=== PATIENT | female | born 1990 | race Caucasian/White ===

== ENCOUNTER 2018-02-07 08:00 | Outpatient (RCR) | payer OTHER ==
[2018-01-31 08:48] VITALS: BP 144/92
[~2018-02-07 08:00] MED LIST: ACET500T68 PO; FOLI-68 PO; LOR5/325 PO; NORG1TAB20 PO; PYRI100T57 PO; VITA-324 PO; WARF10TA28 PO
[2018-02-07 08:15] VITALS: BP 126/83
--- NOTE | 2018-02-07 21:34 | ONCOLOGY FOLLOW UP NOTE ---
EVENT DATE: February 07, 2018 DIAGNOSES 1. Superior sagittal and transverse sinus thrombosis. 2. History of migraine headache. CHIEF COMPLAINT Patient is here today for followup of her cerebrovenous sinus thrombosis with hypercoagulable state. HEMATOLOGY HISTORY The patient is a 27-year-old female who was diagnosed with cerebrovenous sinus thrombosis on June 13, 2015, after being on oral contraceptive pills for about two months. The patient was admitted to the [facility] for about 10 to 11 days. She received heparin, but without improvement of her thrombosis, so the patient received tPA via shunt, and she is currently maintained on Coumadin. The patient has been seen by a neurosurgeon at the [facility], but no genetic testing was done or clotting disorder testing was done there. She still has some diplopia because she was diagnosed with cranial nerve palsy with mild papilledema. 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 HISTORY OF PRESENT ILLNESS Patient is here today for followup of her cerebrovenous sinus thrombosis and hypercoagulable state. She is doing very well currently. She is not on any anticoagulation currently. She is totally asymptomatic except for occasional headache. CURRENT MEDICATIONS 1. Hydrocodone/acetaminophen 5/325 mg one tablet q.4-6 hours p.r.n. for pain. 2. Coumadin 10 mg for six days and 12.5 mg for one day. 3. Folic acid 1 mg daily. 4. Vitamin B complex one tablet daily. ALLERGIES No known drug allergies. PAST MEDICAL HISTORY 1. Cerebral sinus thrombosis of the transverse and superior sagittal sinuses diagnosed June 13, 2015. 2. Migraine headache. PAST SURGICAL HISTORY Microcatheters releasing tPA into the brain clot. FAMILY HISTORY Father was type 1 diabetes and from complications of diabetes. Family history was negative for cancer or blood clotting disorders. SOCIAL HISTORY The patient is . 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 She occasionally drinks, but denies any abuse of alcohol, tobacco, or drugs. REVIEW OF SYSTEMS CONSTITUTIONAL: No appetite or weight change. No fever, chills, or sweating. No recent infection. HEENT: Ears: No tinnitus or hearing problem. Nose: No nasal discharge or epistaxis. Throat: No sore throat or mouth ulcers. Eyes: No diplopia or visual changes. RESPIRATORY: No shortness of breath. No cough, expectoration, or hemoptysis. CARDIOVASCULAR: No chest pain, orthopnea, or paroxysmal nocturnal dyspnea (PND). No edema. No palpitations. GASTROINTESTINAL: No nausea or vomiting. No diarrhea or constipation. No change in bowel movements. No heartburn or swallowing difficulties. No abdominal pain. No jaundice. No hematemesis, melena, or rectal bleeding. GENITOURINARY: She had vaginal spotting after IUD placement. MUSCULOSKELETAL: No pain in the muscles, joints, or bones. NEUROLOGICAL: She has occasional headache. HEMATOLOGIC/LYMPHATIC: No bleeding or easy bruising. No weakness or fatigue. No enlarged lymph nodes. SKIN: No skin rash or lumps. PSYCHIATRIC: No anxiety or depression. PHYSICAL EXAMINATION GENERAL: Looks stable. Well developed, well nourished, and in no acute distress. VITAL SIGNS: Blood pressure 126/83, pulse 93 per minute, respirations 16 per minute, temperature 97.2, pulse ox 96% on room air. HEENT: Head: Atraumatic. No sinus tenderness to palpation. Eyes: No icterus or conjunctivitis. Mouth and Throat: No oral thrush or mucositis. NECK: Supple. No cervical or supraclavicular lymphadenopathy. LUNGS: Clear to auscultation and percussion bilaterally. HEART: Regular rate and rhythm. No gallops, murmurs, clicks, or rubs. ABDOMEN: Soft and lax. No tenderness. No hepatosplenomegaly. No masses. EXTREMITIES: No cyanosis, clubbing, or edema. LYMPHATICS: No peripheral lymphadenopathy. NEUROLOGICAL: Conscious, alert, and oriented times three. No focal motor or sensory deficits. PSYCHIATRIC: Mood and affect appear normal. SKIN: No skin rash, bruise, or purpuric eruption. DIAGNOSTIC DATA Fasting homocysteine level is normal at 6, which is also stable. ASSESSMENT 1. Superior sagittal and transverse sinus thrombosis in a patient who was on oral contractive pills which could be the underlying cause of her thrombosis. 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 The patient completed one year of anticoagulation in June 2016. She did not develop any blood clots since then. If the patient would develop any blood clot in the future, she would be a candidate for life-long anticoagulation. 2. 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 Her initial homocysteine level was high at 11, which was brought down to normal at 6 with vitamin supplement with folic acid 1 mg daily, vitamin B12 at 1000 mcg daily, and vitamin B6 at 50 mg daily. I am going to continue the same vitamins, and I will check her fasting homocysteine level once a year. 3. History of migraine headaches. PLAN 1. Folic acid 1 mg daily. 2. B6 at 50 mg daily. 3. B12 at 1000 mcg orally daily. 4. Patient to return in one year with fasting homocysteine level. 5. The patient to contact us for any new concerns or complaints. KEOD
== END 2018-03-11 08:57 | disposition home or self-care (01) ==
LOC: ONC 08:00
PROVIDERS: ATTEND Internal Medicine Hematology
DX: G08 Intracranial and intraspinal phlebitis and thrombophlebitis (principal); E72.12 Methylenetetrahydrofolate reductase deficiency
CPT/HCPCS: 36415; 83090; 99212